=== PATIENT | female | born 1950 | race Caucasian/White ===

== ENCOUNTER 2016-08-18 17:13 | Emergency (ER) | payer MEDICARE ==
[~2016-08-18] VITALS: Ht 170.2 cm; Wt 118.2 kg
[2016-08-18 17:19] VITALS: BP 187/91; PULSE 88; RESP 20; O2SAT 97
[2016-08-18 19:23] VITALS: BP_SYST 167; PULSE 82; RESP 16; O2SAT 97
--- NOTE | 2016-08-18 19:59 | ED.REPORT ---
HPI-Extremity Problem Upper Date of Service Aug 18, 2016 ED Provider: Matt Del Valle MD Patient is a 65 year old female with a history of Afib, HTN and hyperlipidemia on Xarelto, Losartan and an unknown statin medications presents with a heavy, constant pain in her left arm, rated 8/10, between her shoulder and elbow that began 2 days upon ago awakening. This morning she noted tingling in her hand/ fingers. She reports additional pain in the L scapular region. Pain is not exacerbated with movement and is not relieved with ice or ibuprofen. She denies having any history of CAD, chest pain, SOB or diaphoresis. 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 Nursing Notes Stated Complaint: PAIN IN LEFT ARM,NUMBNESS IN HAND Chief Complaint: Extremity Trauma Nursing Notes Reviewed: Yes Allergies: Coded Allergies: No Known Allergies (Unverified , 08/18/16) General Time Seen by MD: 19:33 Chief Complaint Other (Arm pain Left) Hx Obtained From: Patient Arrived By: Walk-in Onset Occurred: 3 days ago Symptom Duration: Since onset Location: : Arm left Quality: Heaviness Severity: Current: Moderate Severity: Maximum: Moderate Past Medical History Past Medical History Reports: Hyperlipidemia, Hypertension, Denies: Coronary artery disease Reports: Atrial fibrillation Past Surgical History None reported Smoking History Unknown if Ever Smoker Social History Other Social History: , From out of town Review of Systems Basic Review of Systems Respiratory: No shortness of breath Cardiovascular: No chest pain Musculoskeletal: Reports: Extremity pain, Joint pain Skin: Denies Diaphoresis Neurologic: Reports: Numbness Complete sys rev & neg: except as marked. Physical Exam Initial Vital Signs Vital Signs (First) Date Time Temp Pulse Resp B/P Pulse Ox O2 Delivery O2 Flow Rate FiO2 08/18/16 17:19 36.2 88 20 187/91 97 Room Air Initial VS: Reviewed General/Constitutional: Well-developed, Well-nourished Head / Eyes: Atraumatic, Normocephalic, PERRL Neck: Supple, Non-tender, Full range of motion Respiratory: Breath sounds normal, Clear to auscultation, No respiratory distress Lower Extremities: Vascular intact, Neuro intact, No swelling, No tenderness Skin: Warm, Dry, No cyanosis Neurologic: Alert, Oriented, Nonfocal Cardiovascular: Heart sounds NL, No gallop, No murmurs, No rubs, Peripheral circulation NL Heart Rate / Rhythm: Positive: Irreg irregular rhythm Upper Extremity / MS: Neurologic intact, Vascular intact Radial and ulnar pulses intact, median, radial and ulnar nerves in the hand Intact . Motor function in upper L extermity intact. Sensation intact. Abdomen: Soft, Non-tender, BS normoactive Interpretation & Diagnostics Lab Results Interpretation Result Diagram: 08/18/16212408/18/162124 Test 08/18/16 21:25 White Blood Count 8.3th/mm3 (3.8-10.1) Red Blood Count 3.91mil/mm3 (3.90-5.20) Hemoglobin 11.9g/dL (12.0-15.6) Hematocrit 36.5% (35.0-46.0) Mean Corpuscular Volume 93.4fL (81-100) Mean Corpuscular Hemoglobin 30.4pg (27.0-35.0) Mean Corpuscular Hemoglobin Concent 32.6% (32.0-37.0) Red Cell Distribution Width 14.0% (12.3-15.4) Platelet Count 226bil/L (150-400) Neutrophils (%) (Auto) 69.3% (40-74) Lymphocytes (%) (Auto) 24.2% (14-46) Monocytes (%) (Auto) 4.6% (4-12) Eosinophils (%) (Auto) 1.7% (0-5) Basophils (%) (Auto) 0.1% (0-3) Sodium Level 139mEq/L (134-144) Potassium Level 4.1mEq/L (3.5-5.2) Chloride Level 100mEq/L (97-108) Carbon Dioxide Level 25mmol/L (18-29) Blood Urea Nitrogen 15mg/dL (8-27) Creatinine 0.63mg/dL (0.57-1.00) Estimat Glomerular Filtration Rate 135mL/min (>59) Glucose Level 90mg/dL (60-99) Calcium Level 9.3mg/dL (8.5-10.1) Total Bilirubin 0.4mg/dL (0.0-1.2) Aspartate Amino Transf (AST/SGOT) 20U/L (0-50) Alanine Aminotransferase (ALT/SGPT) 14U/L (0-32) Alkaline Phosphatase 77U/L (25-165) Troponin T 0.010ug/L (0.0-0.011) Total Protein 7.2g/dL (6.4-8.4) Albumin 4.0g/dL (3.4-5.0) Hold Jose Top Tube Received (Received) General Lab Results Interp 1: Labs reviewed ECG Interpretation Time: 17:44 Interpreted by: ED physician Rhythm / Conduction: Atrial fibrillation (rate 76) Re-Eval/Medical Decision Re-Evaluation/Progress : Time of Eval: 22:31 Patient Status: Condition improved Re-Evaluation/Progress Note: The patient understands and agrees with the plan. All questions have been answered. Counseled Regarding: Diagnosis, Lab results, Need for follow-up, When/why to return to ED Discharge & Departure Impression: Primary Impression: Left arm pain Disposition: Home Discharge Condition All VS Reviewed: Yes Condition: Stable Additional Instructions: Your emergency room visit today included interview, examination, labs and electrocardiogram. Your workup is reassuring. There is no sign of heart attack or other serious cause for L arm pain. For pain you can take Acetaminophen ( Tylenol) up to 3000mg per day. It is important that you do not take ibuprofen while taking Xarelto. When you return home follow up with your PCP. Return to the ER for chest pain, shortness of breath or any other concerning symptoms. Referrals: NOPCP (PCP) Scribe Attestation Portions of this note were transcribed by Anselmo Brunson and Haley Maurice. I, Dr. Del Valle personally performed the history, physical exam and medical decision- making; I reviewed and confirmed the accuracy of the information in the transcribed note. Signed by: Anselmo Brunson and Estefania Celis, 08/15/2016 and [Time]. Matt Del Valle MD Aug 18, 2016 19:59 Anselmo Brunson Aug 18, 2016 20:50 Haley Maurice Aug 18, 2016 21:26
[2016-08-18 20:58] VITALS: BP 152/73; PULSE 74; RESP 16; O2SAT 98
[2016-08-18 21:33] LABS: BASOPHILS % (AUTO) 0.1 % (0-3); EOSINOPHILS % (AUTO) 1.7 % (0-5); MONOCYTES % (AUTO) 4.6 % (4-12); Mean Corpuscular Hemoglobin 30.4 pg (27.0-35.0); Mean Corpuscular Volume 93.4 fL (81-100); NEUTROPHILS % (AUTO) 69.3 % (40-74); Platelet Count 226 bil/L (150-400)
[2016-08-18 22:05] LABS: TROPONIN T 0.01 ug/L (0.0-0.011)
[2016-08-18 22:54] VITALS: BP 128/67; PULSE 71; RESP 16; O2SAT 99
== END 2016-08-18 22:54 | disposition home or self-care (01) ==
LOC: SED 17:13
DX: M79.602 Pain in left arm (principal); I10 Essential (primary) hypertension; E78.5 Hyperlipidemia, unspecified